=== PATIENT | male | born 1975 | race Hispanic/Latino ===

== ENCOUNTER 2017-10-28 00:29 | Observation (INO) | payer BC ==
[2017-10-28] MEDS ORDERED: Sodium Chloride 0.9% 1,000 ML IV STA ×2 (00:51→06:36)
[2017-10-28 01:57] LABS: BASO # 0.1 K/uL (0.0-0.2); BASO % 0.4 % (0.0-2.0); EOS % 0.3 % (0.0-4.0); LYMPH # 0.9 K/uL (1.0-4.3); LYMPH % 6.4 % (20.0-40.0); MEAN CELL VOLUME 93.4 fl (80.0-94.0); MEAN CORPUSCULAR HEMOGLOBIN 31.5 pg (27.0-31.0); MEAN CORPUSCULAR HGB CONC 33.8 g/dL (33.0-37.0); MEAN PLATELET VOLUME 9.3 fl (7.2-11.7); MONO # 1.4 K/uL (0.0-0.8); MONO % 9.5 % (0.0-10.0); NEUT # 12.2 K/uL (1.8-7.0); NEUT % 83.4 % (50.0-75.0); PLATELET COUNT 202 K/uL (130-400); RBC 4.77 Mil/uL (4.40-5.90); RED CELL DISTRIBUTION WIDTH 12.7 % (11.5-14.5); WHITE BLOOD COUNT 14.7 K/uL (4.8-10.8)
--- NOTE | 2017-10-28 03:03 | CT ---
EXAM: CT Abdomen and Pelvis Without Intravenous Contrast CLINICAL HISTORY: 42 years old, male; Pain; Abdominal pain; Flank; Right; Additional info: R flank pain TECHNIQUE: Axial computed tomography images of the abdomen and pelvis without intravenous contrast. All CT scans at this facility use one or more dose reduction techniques, viz.: automated exposure control; ma/kV adjustment per patient size (including targeted exams where dose is matched to indication; i.e. head); or iterative reconstruction technique. 603 images are submitted. Coronal and sagittal reformatted images were created and reviewed. COMPARISON: No relevant prior studies available. FINDINGS: Lower thorax: There is bibasilar atelectasis. Small hiatal hernia. ABDOMEN:Limitations: Absence of IV contrast decreases sensitivity for detecting vascular and visceral injury and abnormality. Liver: Unremarkable. Gallbladder and bile ducts: Unremarkable. No ductal dilation. Pancreas: Unremarkable. No ductal dilation. Spleen: Unremarkable. No splenomegaly. Adrenals: Unremarkable. No mass. Kidneys and ureters: Right perinephric inflammatory change with moderate right hydroureteronephrosis and a 5-6 mm right distal ureteral stone just proximal to the right UVJ seen on image 153 series 3 representing acute obstructive uropathy. Stomach and bowel: Nonspecific colonic thickening likely due to under distention versus nonspecific colitis. There is stool like appearance to the terminal ileum. This may represent slow transit. Appendix: Normal appendix. PELVIS: Bladder: Partially decompressed bladder with bladder wall thickening. Correlation with urinalysis is recommended only if clinical cystitis is suspected. Reproductive: Prominent prostate gland. ABDOMEN and PELVIS: Intraperitoneal space: Unremarkable. No free air. No significant fluid collection. Bones/joints: No acute fracture. No dislocation. Soft tissues: There is a fat-containing umbilical hernia. Vasculature: Unremarkable. No abdominal aortic aneurysm. Lymph nodes: Para-aortic retroperitoneal subcentimeter lymph nodes. Subcentimeter mesenteric lymph nodes. IMPRESSION: 1 Right perinephric inflammatory change with moderate right hydroureteronephrosis and a 5-6 mm right distal ureteral stone just proximal to the right UVJ seen on image 153 series 3 representing acute obstructive uropathy.
[2017-10-28 03:17] LABS: ALB/GLOB RATIO 1.3 (1.0-2.1); ALBUMIN 4.3 g/dL (3.5-5.0); ALT/SGPT 38 U/L (21-72); AST/SGOT 36 U/L (17-59); BLOOD UREA NITROGEN 27 mg/dl (9-20); CALCIUM 9.4 mg/dL (8.4-10.2); GFR AFRICAN-AMERICAN > 60; GFR NON-AFRICAN AMERICAN 52
[2017-10-28] MEDS ORDERED: Morphine 4 MG/ML VIAL IVP STA ×2 (03:25→06:24)
[2017-10-28] MEDS ORDERED: Morphine 4 MG/ML VIAL ONE ×3 (03:32→08:27)
--- NOTE | 2017-10-28 03:33 | ED PDOC ---
"HPI: Male Pain Time Seen by Provider: 10/28/17 00:41 Chief Complaint (Nursing): Groin Pain Chief Complaint (Provider): Groin Pain History Per: Patient History/Exam Limitations: no limitations Onset/Duration Of Symptoms: Hrs (this afternoon) Current Symptoms Are (Timing): Still Present Associated Symptoms: denies: Fever, Nausea, Vomiting, Diarrhea, Urinary Symptoms Additional Complaint(s): Genaro Keane is a 42 year old male with no past medical history, who presents to the ER with groin pain radiating to right flank, onset this afternoon. Currently, the patient reports having no groin pain but right flank pain that is radiating to the right quadrant. He also reports difficulty urinating and admits to drinking alcohol. Patient denies dysuria, hematuria, fevers, nausea, vomiting, diarrhea or drug usage. Patient offers no other medical complaints at this time. PMD: none provided Past Medical History Reviewed: Historical Data, Nursing Documentation, Vital Signs Vital Signs: Last Vital Signs Temp 97.4 F L 10/28/17 00:47 Pulse 64 10/28/17 00:47 Resp 18 10/28/17 00:47 BP 143/80 10/28/17 00:47 Pulse Ox 98 10/28/17 00:47 - Medical History PMH: No Chronic Diseases - Surgical History Surgical History: No Surg Hx - Family History Family History: States: Unknown Family Hx - Social History Alcohol: Social Drugs: Denies - Allergies Allergies/Adverse Reactions: Allergies Allergy/AdvReac Type Severity Reaction Status Date / Time No Known Allergies Allergy Verified 10/28/17 00:49 Review of Systems ROS Statement: Except As Marked, All Systems Reviewed And Found Negative Constitutional: Negative for: Fever Gastrointestinal: Negative for: Nausea, Vomiting, Diarrhea Genitourinary Male: Positive for: Incontinence, Other (radiating groin pain). Negative for: Dysuria, Hematuria Musculoskeletal: Positive for: Back Pain (right flank) Physical Exam - Reviewed Nursing Documentation Reviewed: Yes Vital Signs Reviewed: Yes - Physical Exam Appears: Positive for: Non-toxic. Negative for: No Acute Distress ( uncomfortable) Head Exam: Positive for: ATRAUMATIC, NORMAL INSPECTION, NORMOCEPHALIC Skin: Positive for: Normal Color, Warm, Dry Eye Exam: Positive for: EOMI, Normal appearance, PERRL Neck: Positive for: Normal, Painless ROM, Supple Respiratory: Positive for: Normal Breath Sounds. Negative for: Respiratory Distress Gastrointestinal/Abdominal: Positive for: Normal Exam, Soft. Negative for: Tenderness Male Genital Exam: Positive for: normal genitalia (normal testicular exam), other (normal lie, intact cremasteric reflex) Back: Positive for: Normal Inspection. Negative for: L CVA Tenderness, R CVA Tenderness, Vertebral Tenderness Extremity: Positive for: Normal ROM. Negative for: Pedal Edema, Deformity, Swelling Neurologic/Psych: Positive for: Alert, Oriented - Laboratory Results Result Diagrams: 10/28/17 01:51 10/28/17 01:51 - ECG O2 Sat by Pulse Oximetry: 98 (RA) Pulse Ox Interpretation: Normal Medical Decision Making Medical Decision Making: Time: 00:50 Initial Impression: Kidney Stones Plan: --CT Abd/Pelvis --CMP --CBC --Flomax 0.4 mg PO --Morphine 4 mg IVP --IV Fluids 1,000 mls/hr --Toradol 30 mg IVP --Zofran 4 mg IVP --Urine Culture --Urinalysis 630AM EXAM: CT Abdomen and Pelvis Without Intravenous Contrast CLINICAL HISTORY: 42 years old, male; Pain; Abdominal pain; Flank; Right; Additional info: R flank pain TECHNIQUE: Axial computed tomography images of the abdomen and pelvis without intravenous contrast. All CT scans at this facility use one or more dose reduction techniques, viz.: automated exposure control; ma/kV adjustment per patient size (including targeted exams where dose is matched to indication; i.e. head); or iterative reconstruction technique. 603 images are submitted. Coronal and sagittal reformatted images were created and reviewed. COMPARISON: No relevant prior studies available. FINDINGS: Lower thorax: There is bibasilar atelectasis. Small hiatal hernia. ABDOMEN:Limitations: Absence of IV contrast decreases sensitivity for detecting vascular and visceral injury and abnormality. Liver: Unremarkable. Gallbladder and bile ducts: Unremarkable. No ductal dilation. Pancreas: Unremarkable. No ductal dilation. Spleen: Unremarkable. No splenomegaly. Adrenals: Unremarkable. No mass. Kidneys and ureters: Right perinephric inflammatory change with moderate right hydroureteronephrosis and a 5-6 mm right distal ureteral stone just proximal to the right UVJ seen on image 153 series 3 representing acute obstructive uropathy. Stomach and bowel: Nonspecific colonic thickening likely due to under distention versus nonspecific colitis. There is stool like appearance to the terminal ileum. This may represent slow transit. Appendix: Normal appendix. PELVIS: Bladder: Partially decompressed bladder with bladder wall thickening. Correlation with urinalysis is recommended only if clinical cystitis is suspected. Reproductive: Prominent prostate gland. ABDOMEN and PELVIS: GENARO KEANE | Final Radiology Report CONFIDENTIALITY STATEMENT This report is intended only for use by the referring physician, and only in accordance with law. If you received this in error, call [phone]. Page 2 of 2 Intraperitoneal space: Unremarkable. No free air. No significant fluid collection. Bones/joints: No acute fracture. No dislocation. Soft tissues: There is a fat-containing umbilical hernia. Vasculature: Unremarkable. No abdominal aortic aneurysm. Lymph nodes: Para-aortic retroperitoneal subcentimeter lymph nodes. Subcentimeter mesenteric lymph nodes. IMPRESSION: 1 Right perinephric inflammatory change with moderate right hydroureteronephrosis and a 5-6 mm right distal ureteral stone just proximal to the right UVJ seen on image 153 series 3 representing acute obstructive uropathy. Patient still having pain after multiple rounds of pain medication and also having nausea. Case discussed with Dr. Lara who agrees to admission for IVF and will consider stenting patient if he doesn't pass the stone. Scribe Attestation: Documented by Myrna Townsend, acting as a scribe for Wilman Ch MD Provider Scribe Attestation: All medical record entries made by the Scribe were at my direction and personally dictated by me. I have reviewed the chart and agree that the record accurately reflects my personal performance of the history, physical exam, medical decision making, and the department course for this patient. I have also personally directed, reviewed, and agree with the discharge instructions and disposition. Disposition - Clinical Impression Clinical Impression: Hydronephrosis with renal and ureteral calculous obstruction, Intractable vomiting, Intractable pain - Disposition Disposition Time: 06:43 Condition: FAIR Forms: [facility] (Estonian)"
[2017-10-28 03:36] LABS: URINE COLOR YELLOW (YELLOW)
[2017-10-28 03:37] LABS: PH,URINE 5 (5.0-8.0); URINE BILIRUBIN NEGATIVE (NEGATIVE); URINE BLOOD MODERATE (NEGATIVE); URINE CLARITY CLOUDY (Clear); URINE GLUCOSE (UA) NEG (Normal); URINE PROTEIN 30 mg/dL (NEGATIVE)
[2017-10-28 03:38] LABS: SQUAMOUS EPITHIAL 2 /hpf (0-5); URINE LEUKOCYTE ESTERASE NEG Leu/uL (Negative)
[2017-10-28 03:50] LABS: EOSINOPHIL 1 % (0-7); LYMPHOCYTE 2 % (20-50); MONOCYTE 5 % (0-10); NEUTROPHIL 83 % (42-75); REACTIVE LYMPHOCYTES 9 % (0-0); TOTAL CELLS COUNTED 100
[2017-10-28 03:51] LABS: STOMATOCYTES SLIGHT
[2017-10-28 03:52] LABS: SMUDGE CELLS PRESENT
[2017-10-28 03:53] LABS: TOXIC GRANULATION PRESENT
[2017-10-28 03:54] LABS: PLATELET ESTIMATE NORMAL (NORMAL)
[2017-10-28] MEDS ORDERED: Sodium Chloride 0.9% 1,000 ML IV SCH (07:15)
[2017-10-28] MEDS ORDERED: HYDROmorphone 0.5 mg/0.5 ml ISec IVP PRN (08:27)
[2017-10-28 08:28] LABS: HEMOGLOBIN 14.2 g/dL (12.0-18.0); MEAN CORPUSCULAR HEMOGLOBIN 31.6 pg (27.0-31.0); RBC 4.49 Mil/uL (4.40-5.90); RED CELL DISTRIBUTION WIDTH 12.8 % (11.5-14.5); WHITE BLOOD COUNT 9.9 K/uL (4.8-10.8)
--- NOTE | 2017-10-28 08:28 | CP.PCM.HP ---
History of Present Illness - History of Present Illness History of Present Illness: Chief Complaint : right flank pain radiating to the groin HPI: 42 y/o gent with no significant PMH came in because of sudden onset of right flank pain. Pain started at about 6pm yesterday , about 9-10/10 in intensity radiating to the right groin area. Pain is accompanied by nausea and pt also vomited . Because of the worsening pain, the pt presented to the ED. Denies fever , chills, no dysuria, no hematuria, no diarrhea nor constipation. Present on Admission - Present on Admission Any Indicators Present on Admission: No Review of Systems - Review of Systems All systems: reviewed and no additional remarkable complaints except - Constitutional Constitutional: absent: Chills, Fever, Headache, Weight Loss - EENT Eyes: absent: Change in Vision Ears: absent: Decreased Hearing Nose/Mouth/Throat: absent: Nasal Congestion - Cardiovascular Cardiovascular: absent: Chest Pain, Diaphoresis, Dyspnea, Leg Edema - Respiratory Respiratory: absent: Cough, Dyspnea, Dyspnea on Exertion - Gastrointestinal Gastrointestinal: Abdominal Pain, Nausea, Vomiting. absent: Coffee Ground Emesis, Diarrhea - Genitourinary Genitourinary: absent: Dysuria, Hematuria, Pyuria, Nocturia, Urinary Frequency, Urinary Hesitance - Musculoskeletal Musculoskeletal: absent: Back Pain, Muscle Weakness - Integumentary Integumentary: absent: Pruritus, Rash - Neurological Neurological: absent: Confusion, Dizziness, Focal Weakness - Psychiatric Psychiatric: absent: Anxiety, Behavioral Changes, Depression - Endocrine Endocrine: absent: Polydipsia, Polyphagia, Polyuria - Hematologic/Lymphatic Hematologic: absent: Easy Bleeding, Easy Bruising Past Patient History - Infectious Disease Hx of Infectious Diseases: None - Tetanus Immunizations Tetanus Immunization: Unknown - Past Medical History & Family History Past Medical History?: No Past Family History: Reviewed and not pertinent Pertinent Family History: Father: kidney stones - Past Social History Smoking Status: Current Some Days Smoker Chewing Tobacco Use: No Cigar Use: No Alcohol: Social Drugs: Denies Home Situation {Lives}: With Family - CARDIAC Hx Cardiac Disorders: No - PULMONARY Hx Respiratory Disorders: No - NEUROLOGICAL Hx Neurological Disorder: No - HEENT Hx HEENT Problems: No - RENAL Hx Chronic Kidney Disease: No - ENDOCRINE/METABOLIC Hx Endocrine Disorders: No - HEMATOLOGICAL/ONCOLOGICAL Hx Blood Disorders: No - INTEGUMENTARY Hx Dermatological Problems: No - MUSCULOSKELETAL/RHEUMATOLOGICAL Hx Musculoskeletal Disorders: No - GASTROINTESTINAL Hx Gastrointestinal Disorders: No - GENITOURINARY/GYNECOLOGICAL Hx Genitourinary Disorders: No - PSYCHIATRIC Hx Psychophysiologic Disorder: No Hx Substance Use: No - SURGICAL HISTORY Hx Surgeries: Yes Other/Comment: Hand Surgery for fracture - ANESTHESIA Hx Anesthesia: Yes Meds Allergies/Adverse Reactions: Allergies Allergy/AdvReac Type Severity Reaction Status Date / Time No Known Allergies Allergy Verified 10/28/17 00:49 Physical Exam - Constitutional Appears: No Acute Distress - Head Exam Head Exam: ATRAUMATIC, NORMAL INSPECTION, NORMOCEPHALIC - Eye Exam Eye Exam: EOMI, Normal appearance, PERRL Pupil Exam: NORMAL ACCOMODATION - ENT Exam ENT Exam: Mucous Membranes Dry, Normal External Ear Exam - Neck Exam Neck exam: Positive for: Full Rom. Negative for: Meningismus - Respiratory Exam Respiratory Exam: NORMAL BREATHING PATTERN. absent: Respiratory Distress - Cardiovascular Exam Cardiovascular Exam: REGULAR RHYTHM, +S1, +S2 - GI/Abdominal Exam GI & Abdominal Exam: Normal Bowel Sounds, Soft, Tenderness (slight right lower quadrant tenderness) - Extremities Exam Extremities exam: Positive for: full ROM, normal capillary refill, pedal pulses present. Negative for: calf tenderness, joint swelling, pedal edema - Back Exam Back exam: FULL ROM, NORMAL INSPECTION. absent: CVA tenderness (L), CVA tenderness (R) - Neurological Exam Neurological exam: Alert, CN II-XII Intact, Normal Gait, Oriented x3, Reflexes Normal - Psychiatric Exam Psychiatric exam: Normal Affect, Normal Mood - Skin Skin Exam: Dry, Normal Color, Warm Results - Vital Signs Recent Vital Signs: Last Vital Signs Temp 98.0 F 10/28/17 07:48 Pulse 75 10/28/17 07:48 Resp 16 10/28/17 07:48 BP 125/69 10/28/17 07:48 Pulse Ox 99 10/28/17 07:48 - Labs Result Diagrams: 10/28/17 08:12 10/28/17 08:12 Labs: Laboratory Results - last 24 hr 10/28/17 10/28/17 10/28/17 01:51 01:51 01:51 WBC 14.7 H RBC 4.77 Hgb 15.0 Hct 44.6 MCV 93.4 MCH 31.5 H MCHC 33.8 RDW 12.7 Plt Count 202 MPV 9.3 Neut % (Auto) 83.4 H Lymph % (Auto) 6.4 L [place] % (Auto) 9.5 Eos % (Auto) 0.3 Baso % (Auto) 0.4 Neut # (Auto) 12.2 H Lymph # (Auto) 0.9 L [place] # (Auto) 1.4 H Eos # (Auto) 0.0 Baso # (Auto) 0.1 Neutrophils % (Manual) 83 H Lymphocytes % (Manual) 2 L Reactive Lymphs % 9 H Monocytes % (Manual) 5 Eosinophils % (Manual) 1 Smudge Cells Present Toxic Granulation Present Platelet Estimate Normal Macrocytosis (manual) Slight Stomatocytes Slight Sodium 142 Potassium 4.0 Chloride 102 Carbon Dioxide 23 Anion Gap 21 H BUN 27 H Creatinine 1.5 Est GFR ( Amer) > 60 Est GFR (Non-Af Amer) 52 Random Glucose 98 Calcium 9.4 Total Bilirubin 0.4 AST 36 ALT 38 Alkaline Phosphatase 62 Total Protein 7.7 Albumin 4.3 Globulin 3.4 Albumin/Globulin Ratio 1.3 Urine Color Yellow Urine Clarity Cloudy Urine pH 5 Ur Specific [place] 1.031 H Urine Protein 30 Urine Glucose (UA) Neg Urine Ketones Trace Urine Blood Moderate Urine Nitrate Negative Urine Bilirubin Negative Urine Urobilinogen .2 Ur Leukocyte Esterase Neg Urine RBC (Auto) 4 H Urine Microscopic WBC 1 Ur Squamous Epith Cells 2 - EKG Data Interpretation: Acute Arrhythmia - Imaging and Cardiology CT scan - pelvis Additional comment: Right perinephric inflammatory change with moderate right hydroureteronephrosis and a 5-6 mm right distal ureteral stone just proximal to the right UVJ seen on image 153 series 3 representing acute obstructive uropathy. Assessment & Plan (1) Hydronephrosis with renal and ureteral calculous obstruction Status: Acute - Assessment and Plan (Free Text) Assessment: Ureterolithiasis with right Hydronephrosis - Start IVF hydration - Pain mgt with Toradol and Dilaudid - start Flomax - IV Ceftriaxone 1 gram daily -Strain urine - Urine culture -Urology consult - Dr Lara, pt may need Ureteral Stent placement if stone does not pass Leukocytosis prob reactive will monitor pt is afebrile - will give a dose of Iv Ceftriaxone DVT proph - SCD Decision To Admit - Pt Status Changed To: Hospital Disposition Of: Observation - . Bed Request Type: Med/Surg Admitting Physician: Lisa Hernandez
[2017-10-28 08:35] LABS: BLOOD UREA NITROGEN 24 mg/dl (9-20); CALCIUM 8.7 mg/dL (8.4-10.2); GFR AFRICAN-AMERICAN > 60; GFR NON-AFRICAN AMERICAN 56
[2017-10-28 08:52] LABS: PARTIAL THROMBOPLASTIN TIME 30.3 Seconds (25.6-37.1); PROTHROMBIN TIME 11.6 Seconds (9.8-13.1)
[2017-10-28] MEDS ORDERED: Morphine 4 MG/ML VIAL IVP ONE (09:00)
--- NOTE | 2017-10-28 14:29 | CP.PCM.PN ---
Subjective - Date & Time of Evaluation Date of Evaluation: 10/28/17 Time of Evaluation: 14:28 - Subjective Subjective: for OR in am if he deoes not pass srone Objective - Vital Signs/Intake and Output Vital Signs (last 24 hours): Temp Pulse Resp BP Pulse Ox 98.2 F 82 18 117/67 95 10/28/17 09:19 10/28/17 09:19 10/28/17 11:04 10/28/17 09:19 10/28/17 09:19 - Medications Medications: Current Medications Hydromorphone HCl (Dilaudid) 0.5 mg IVP Q3 PRN PRN Reason: Pain, severe (8-10) Ceftriaxone Sodium 1 gm/ (Dextrose) 100 mls @ 100 mls/hr IVPB DAILY BORIS PRN Reason: Protocol Ketorolac Tromethamine (Toradol) 30 mg IVP Q6 PRN PRN Reason: Pain, Mild (1-3) Last Admin: 10/28/17 08:24 Dose: 30 mg Ondansetron HCl (Zofran Inj) 4 mg IVP Q6 PRN PRN Reason: Nausea/Vomiting Last Admin: 10/28/17 08:32 Dose: 4 mg Tamsulosin HCl (Flomax) 0.4 mg PO DAILY BORIS Last Admin: 10/28/17 12:52 Dose: Not Given - Labs Labs: 10/28/17 08:12 10/28/17 08:12 PT 11.6 Seconds (9.8-13.1) 10/28/17 08:12 INR 1.0 (0.9-1.2) 10/28/17 08:12 APTT 30.3 Seconds (25.6-37.1) 10/28/17 08:12
[2017-10-29] MEDS: Lactated Ringer's 1,000 ML IV SCH ×2 (00:30→10:16)
[2017-10-29 06:34] LABS: BASO # 0.1 K/uL (0.0-0.2); BASO % 0.8 % (0.0-2.0); EOS # 0.1 K/uL (0.0-0.7); EOS % 1.9 % (0.0-4.0); HEMOGLOBIN 13.1 g/dL (12.0-18.0); LYMPH # 1.6 K/uL (1.0-4.3); LYMPH % 20.8 % (20.0-40.0); MEAN CELL VOLUME 94.1 fl (80.0-94.0); MEAN CORPUSCULAR HEMOGLOBIN 32.2 pg (27.0-31.0); MEAN CORPUSCULAR HGB CONC 34.2 g/dL (33.0-37.0); MEAN PLATELET VOLUME 9.6 fl (7.2-11.7); MONO % 12.6 % (0.0-10.0); NEUT # 5.1 K/uL (1.8-7.0); NEUT % 63.9 % (50.0-75.0); NRBC % 0.1 % (0.0-0.0); RBC 4.08 Mil/uL (4.40-5.90); RED CELL DISTRIBUTION WIDTH 12.9 % (11.5-14.5); WHITE BLOOD COUNT 7.9 K/uL (4.8-10.8)
[2017-10-29 07:13] LABS: CALCIUM 8.4 mg/dL (8.4-10.2)
[2017-10-29] MEDS ORDERED: Iohexol 240 200 ML ONE (07:27)
[2017-10-29] MEDS ORDERED: cefTRIAXone (Rocephin) 1 gm Inj ONE (07:27)
[2017-10-29] MEDS ORDERED: Iohexol 300 100 ML IJ ONE (07:28)
[2017-10-29] MEDS ORDERED: Lactated Ringer's 1,000 ML IV ONE (08:05)
[2017-10-29] MEDS ORDERED: Midazolam 2 MG/2 ML VIAL ONE (08:10)
[2017-10-29] MEDS ORDERED: Propofol 10 mg/ml Inj (20 ML) ONE (08:10)
[2017-10-29] MEDS ORDERED: cefTRIAXone (Rocephin) 1 gm Inj IVPB ONE (08:10)
[2017-10-29] MEDS ORDERED: Sodium Chloride 0.9% 1,000 ML IV SCH (09:45)
[2017-10-29] MEDS ORDERED: Lactated Ringer's 1,000 ML IV SCH (09:45)
--- NOTE | 2017-10-29 11:00 | CP.PCM.DIS ---
Provider - Provider Date of Admission: 10/28/17 06:39 Attending physician: Shadi Kramer MD Primary care physician: Dr Blakely Consults: Urology: DR Lara Time Spent in preparation of Discharge (in minutes): 30 Diagnosis - Discharge Diagnosis (1) Hydronephrosis with renal and ureteral calculous obstruction Status: Acute (2) LETTY (acute kidney injury) Status: Acute (3) Leukocytosis Status: Acute Hospital Course - Lab Results Lab Results: Micro Results 10/28/17 03:30 Urine,Clean Catch Urine Culture - Final No Growth (<1,000 CFU/ML) Most Recent Lab Values WBC 7.9 K/uL (4.8-10.8) 10/29/17 05:45 RBC 4.08 Mil/uL (4.40-5.90) L 10/29/17 05:45 Hgb 13.1 g/dL (12.0-18.0) 10/29/17 05:45 Hct 38.4 % (35.0-51.0) 10/29/17 05:45 MCV 94.1 fl (80.0-94.0) H 10/29/17 05:45 MCH 32.2 pg (27.0-31.0) H 10/29/17 05:45 MCHC 34.2 g/dL (33.0-37.0) 10/29/17 05:45 RDW 12.9 % (11.5-14.5) 10/29/17 05:45 Plt Count 141 K/uL (130-400) 10/29/17 05:45 MPV 9.6 fl (7.2-11.7) 10/29/17 05:45 Neut % (Auto) 63.9 % (50.0-75.0) 10/29/17 05:45 Lymph % (Auto) 20.8 % (20.0-40.0) 10/29/17 05:45 [place] % (Auto) 12.6 % (0.0-10.0) H 10/29/17 05:45 Eos % (Auto) 1.9 % (0.0-4.0) 10/29/17 05:45 Baso % (Auto) 0.8 % (0.0-2.0) 10/29/17 05:45 Neut # (Auto) 5.1 K/uL (1.8-7.0) 10/29/17 05:45 Lymph # (Auto) 1.6 K/uL (1.0-4.3) 10/29/17 05:45 [place] # (Auto) 1.0 K/uL (0.0-0.8) H 10/29/17 05:45 Eos # (Auto) 0.1 K/uL (0.0-0.7) 10/29/17 05:45 Baso # (Auto) 0.1 K/uL (0.0-0.2) 10/29/17 05:45 Neutrophils % (Manual) 83 % (42-75) H 10/28/17 01:51 Lymphocytes % (Manual) 2 % (20-50) L 10/28/17 01:51 Reactive Lymphs % 9 % (0-0) H 10/28/17 01:51 Monocytes % (Manual) 5 % (0-10) 10/28/17 01:51 Eosinophils % (Manual) 1 % (0-7) 10/28/17 01:51 Smudge Cells Present 10/28/17 01:51 Toxic Granulation Present 10/28/17 01:51 Platelet Estimate Normal (NORMAL) 10/28/17 01:51 Macrocytosis (manual) Slight 10/28/17 01:51 Stomatocytes Slight 10/28/17 01:51 PT 11.6 Seconds (9.8-13.1) 10/28/17 08:12 INR 1.0 (0.9-1.2) 10/28/17 08:12 APTT 30.3 Seconds (25.6-37.1) 10/28/17 08:12 Sodium 138 mmol/l (132-148) 10/29/17 05:45 Potassium 4.4 MMOL/L (3.6-5.0) 10/29/17 05:45 Chloride 103 mmol/L (98-107) 10/29/17 05:45 Carbon Dioxide 25 mmol/L (22-30) 10/29/17 05:45 Anion Gap 14 (10-20) 10/29/17 05:45 BUN 19 mg/dl (9-20) 10/29/17 05:45 Creatinine 1.7 mg/dl (0.8-1.5) H 10/29/17 05:45 Est GFR ( Amer) 54 10/29/17 05:45 Est GFR (Non-Af Amer) 45 10/29/17 05:45 Random Glucose 94 mg/dL (75-110) 10/29/17 05:45 Calcium 8.4 mg/dL (8.4-10.2) 10/29/17 05:45 Total Bilirubin 0.4 mg/dl (0.2-1.3) 10/28/17 01:51 AST 36 U/L (17-59) 10/28/17 01:51 ALT 38 U/L (21-72) 10/28/17 01:51 Alkaline Phosphatase 62 U/L (38-126) 10/28/17 01:51 Total Protein 7.7 G/DL (6.3-8.2) 10/28/17 01:51 Albumin 4.3 g/dL (3.5-5.0) 10/28/17 01:51 Globulin 3.4 gm/dL (2.2-3.9) 10/28/17 01:51 Albumin/Globulin Ratio 1.3 (1.0-2.1) 10/28/17 01:51 Urine Color Yellow (YELLOW) 10/28/17 01:51 Urine Clarity Cloudy (Clear) 10/28/17 01:51 Urine pH 5 (5.0-8.0) 10/28/17 01:51 Ur Specific [place] 1.031 (1.003-1.030) H 10/28/17 01:51 Urine Protein 30 mg/dL (NEGATIVE) 10/28/17 01:51 Urine Glucose (UA) Neg mg/dL (Normal) 10/28/17 01:51 Urine Ketones Trace mg/dL (NEGATIVE) 10/28/17 01:51 Urine Blood Moderate (NEGATIVE) 10/28/17 01:51 Urine Nitrate Negative (NEGATIVE) 10/28/17 01:51 Urine Bilirubin Negative (NEGATIVE) 10/28/17 01:51 Urine Urobilinogen .2 mg/dL (0.2-1.0) 10/28/17 01:51 Ur Leukocyte Esterase Neg David/uL (Negative) 10/28/17 01:51 Urine RBC (Auto) 4 /hpf (0-3) H 10/28/17 01:51 Urine Microscopic WBC 1 /hpf (0-5) 10/28/17 01:51 Ur Squamous Epith Cells 2 /hpf (0-5) 10/28/17 01:51 - Hospital Course Hospital Course: 42 y/o gent with no significant PMH came in because of sudden onset of right flank pain. about 9-10/10 in intensity radiating to the right groin area. Pain was accompanied by nausea and vomiting. Because of the worsening pain, the pt presented to the ED. Denies fever , chills, no dysuria, no hematuria, no diarrhea nor constipation. CT of the abdomen/Pelvis: Right perinephric inflammatory change with moderate right hydroureteronephrosis and a 5-6 mm right distal ureteral stone just proximal to the right UVJ seen on image 153 series 3 representing acute obstructive uropathy. Obstructive Uropathy sec to Ureterolithiasis with right Hydronephrosis - IVF hydration - Pain mgt with Toradol and Dilaudid - started Flomax - IV Ceftriaxone 1 gram daily -Strain urine - Urine culture: no growth -Urology consulted- Dr Lara - Pt then underwent Cystoscopy, with Ureteral Stent Placement Pt will ff up with Dr Lara as outpt for further mgt of Stone ( Lithotripsy followed by removal of stent) Leukocytosis prob reactive pt is afebrile empirically started on Iv Ceftriaxone LETTY sec to Obstructive Uropathy - ff up with Dr Blakely , need rpt Crea to ff up that it normalizes DVT proph - SCD Discharge Exam - Head Exam Head Exam: ATRAUMATIC, NORMAL INSPECTION, NORMOCEPHALIC - Eye Exam Eye Exam: EOMI, Normal appearance, PERRL Pupil Exam: NORMAL ACCOMODATION - ENT Exam ENT Exam: Mucous Membranes Moist, Normal External Ear Exam - Neck Exam Neck exam: Full Rom - Respiratory Exam Respiratory Exam: NORMAL BREATHING PATTERN. absent: Respiratory Distress - Cardiovascular Exam Cardiovascular Exam: REGULAR RHYTHM, +S1, +S2 - GI/Abdominal Exam GI & Abdominal Exam: Normal Bowel Sounds, Soft. absent: Tenderness - Extremities Exam Extremities exam: full ROM, normal capillary refill, normal inspection, pedal pulses present - Back Exam Back exam: CVA tenderness (L), CVA tenderness (R), FULL ROM - Neurological Exam Neurological exam: Alert, CN II-XII Intact, Oriented x3, Reflexes Normal - Psychiatric Exam Psychiatric exam: Normal Affect, Normal Mood - Skin Skin Exam: Dry, Normal Color, Warm Discharge Plan - Discharge Medications Prescriptions: traMADol [Ultram] 50 mg PO TID PRN #20 tab PRN Reason: Pain, Moderate (4-7) - Follow Up Plan Condition: GOOD Disposition: HOME/ ROUTINE Instructions: Kidney Stones (DC), Hydronephrosis, Adult (DC), Cystoscopy (DC) Additional Instructions: follow up with Dr Blakely in 1 wk repeat BMP to follow up on Creatinine follow up with Dr Lara in 1 week Referrals: Antonella Lara MD [Medical Doctor] - Hua Blakely MD [Staff Provider] -
--- NOTE | 2017-10-29 11:50 | RAD ---
PROCEDURE: Intraoperative Fluoroscopy. HISTORY: CYSTO FINDINGS: Fluoroscopic assistance was provided for cystoscopy. Please refer to the operative report from SHANDRA Simpson. Total fluoroscopic time (continuous mode) utilized during the procedure: . 0.2 minutes
--- NOTE | 2017-10-29 12:42 | OP ---
PROCEDURE DATE: 10/29/2017 PREOPERATIVE DIAGNOSES: Right ureteral calculus and right renal colic. PROCEDURE PERFORMED ON THE PATIENT: Cystoscopy, right ureteroscopy, right ureteral stone basketing and right double J-stent placement. DESCRIPTION OF PROCEDURE: Under general anesthesia, the patient was placed on the operating table in the dorsal lithotomy position. The area of the groin was draped and prepped in a sterile manner. Using a short ureteroscope, I entered into the bladder atraumatically. There was a lot of edema around the right hemitrigone. With some difficulty, I was able to localize a right ureteral orifice and over a floppy tip sensor wire. I advanced the ureteroscope to the level of the lower ureteral calculus. I bypassed it, deployed a double-helical basket, engaged it and removed it. I went to do a second look procedure. There was a residual fragment, which I then reengaged, removed that one as well. On the third pass, there was no residual stones in the lower ureter and I looked to the level of renal pelvis without a problem. With the sensor wire in place, I then placed a 6-Lao multi-link double-J stent. Fluroscopic equipment had failed at this time, so we just placed . At the end of the procedure, all the instrumentation was removed. We are able to get a KUB postoperatively and stent appears to be in good place. Stones were sent for specimen analysis. The patient was taken from the operating room in good condition. Antonelal Lara MD
--- NOTE | 2017-10-29 12:51 | HP ---
HISTORY OF PRESENT ILLNESS: This is a 42-year-old gentleman who I was call to see from the Emergency Room because of acute right renal colic secondary to a right obstructing the lower ureteral calculus. This is the first episode of stone disease for this patient. He does have a family history of calculus diseases and his father had suffered with this in the past. The patient generally comes from a negative medical background. He is on no medications. No prior surgery. This is his first event medically. The patient was in significant amount of pain with nausea and vomiting, needing dosaging of morphine and Zofran for a symptomatic relief of the vomiting. At this point, when he was seen today, the pain level was suppressed secondary to the analgesic medication. I described to him that we would wait 24 hours if the stone does not pass spontaneously with IV hydration then I would proceed with intervention endoscopically to remove it. The patient had questions about the nature of the procedure and all that information was discussed with him at this time. PHYSICAL EXAMINATION: GENERAL: The patient does have right flank pain on percussion. ABDOMEN: Nondistended. Generally, his appearance is normal. EXTREMITIES: No extremity deficiencies. NEUROLOGIC: No neurologic deficiencies noted. IMPRESSION AND PLAN: At this time, again the patient is definitely encouraged to screen all his urine. If we do not see a stone by tomorrow, then I will schedule him for cystoscopy with stone manipulation. Antonella Lara MD
[2017-10-29 13:11] VITALS: BP 118/72; PULSE 51; RESP 19; TEMP 97.4; O2SAT 98
== END 2017-10-29 13:40 | disposition home or self-care (01) ==
LOC: H.ER 00:29 → H.ERHOLD 06:39 → H.MEDSURG1 08:54
PROVIDERS: ADMIT Internal Medicine; ATTEND Internal Medicine
DX: N13.2 Hydronephrosis with renal and ureteral calculous obstruction (principal); N17.9 Acute kidney failure, unspecified; D72.829 Elevated white blood cell count, unspecified; F17.200 Nicotine dependence, unspecified, uncomplicated
CPT/HCPCS: 36415; 52320; 52332; 74176; 80053; 81003; 82355; 85025; 85027; 85610; 85730; 87086; 96361; 96374; 96375; 96376; 99283; C1769; C2617; G0378; J0696; J1170; J1885; J2001; J2250; J2270; J2405; J2704; J2765; J3010; J7040; J7120